=== PATIENT | male | born 1965 | race Two or more races ===

== ENCOUNTER → 2018-06-20 | Emergency (ER) | payer OTHER ==
[~2018-06-20] VITALS: Ht 172.7 cm; Wt 133.8 kg
--- NOTE | 2018-06-20 14:00 | NUR ---
[id number], [id number] FROM [address]: UNCONTROLLED NOSE BLEED, HIGH BLOOD PRESSURE. RR is even and unlabored with NAD noted. Skin is warm and dry. Awaiting md for eval.
--- NOTE | 2018-06-20 14:03 | NUR ---
Patient was placed on a noseclip. Dr Lakhani at for eval.
--- NOTE | 2018-06-20 14:55 | NUR ---
Patient discharged to home in stable condition. Written and verbal after care instructions given. Patient verbalizes understanding of instruction.
[2018-06-20 14:57] VITALS: BP 148/98
--- NOTE | 2018-06-20 14:59 | NUR ---
unable to depart the patient "DEPART" button is inactive.
== END | disposition home or self-care (01) ==
LOC: ER 15:43
DX: R04.0 Epistaxis (principal)
CPT/HCPCS: 99283; A4606; Z7610